=== PATIENT | female | born 1995 | race Caucasian/White ===

== ENCOUNTER → 2018-05-28 | Outpatient (REF) ==
[~2018-05-28] MED LIST: BIRTH CONTROL; LACT1CAP6 PO; LOPE-111 PO; MULT-1335 PO; ONDA4TAB PO
[2018-05-28 15:41] LABS: LDL CHOLESTEROL 60 mg/dl
== END ==
DX: Z02.9 Encounter for administrative examinations, unspecified (principal)

== ENCOUNTER → 2018-06-10 | Outpatient (CLI) | payer OTHER, BC ==
[~2018-06-10] MED LIST changes: +DOCO100C2 PO; +PREN-127 PO; +[UNRECOGNIZED DRUG - CODE] PO
[2018-06-10 12:10] LABS: PLATELET COUNT, AUTOMATED 293 K/uL (150-450)
== END ==
LOC: LAB 07:53
PROVIDERS: ATTEND Advanced Practice Midwife
DX: Z34.91 Encounter for supervision of normal pregnancy, unspecified, first trimester (principal)
CPT/HCPCS: 36415; 81001; 85025; 86592; 86703; 86762; 86850; 86900; 86901; 87088; 87340

== ENCOUNTER → 2018-06-20 | Outpatient (CLI) | payer OTHER, BC | LOC: LAB 07:50 | PROVIDERS: ATTEND Student in an Organized Health Care Education/Training Program | DX: Z11.3 Encounter for screening for infections with a predominantly sexual mode of transmission (principal); Z11.8 Encounter for screening for other infectious and parasitic diseases | CPT/HCPCS: 87491; 87591 ==

== ENCOUNTER → 2018-09-02 | Outpatient (CLI) | payer OTHER, BC ==
--- NOTE | 2018-09-02 13:45 | RADIOLOGY IMAGING REPORT ---
FACILITY: [facility] [place] PATIENT NAME: Ilsa Whelan : 1995 MR: [id number] V: [id number] EXAM DATE: ORDERING PHYSICIAN: MARJ SALES TECHNOLOGIST: [facility] Patient: Ilsa Whelan : 1995 Visit/Account:[id number] Date of Sevice: 09/02/2018 [facility] OB ANATOMICAL SURVEY HISTORY: Anatomy scan [facility] OB ANATOMICAL SURVEY HISTORY: Anatomy scan COMPARISON: 06/20/2018 FINDINGS: Intrauterine gestations: 1 presentation: Breech heart rate: 147 bpm Amniotic fluid volume: MOSES 18.2 cm; Largest amniotic fluid pocket 5.6 cm Placenta: Posterior. No placenta previa or retroplacental hemorrhage. Placenta measured to within 2. 4 cm of the cervix Uterus: Gravid, otherwise normal Maternal adnexa: Negative Cervix: Closed Gestational Parameters: BPD: 4.3 cm; 19 weeks/ 0 days/49th percent HC: 16.2 cm; 19 weeks/ 0 days/40th percentile AC: 14.3 cm; 19 weeks/ 5 days/68 th percentile FL: 2.9 cm; 19 weeks/ 1 days/45th percentile Average ultrasound age (AUA): 19 weeks/ 2 days Estimated weight (EFW): 287 grams +/- 42 grams Anatomic Survey: Intracranial structures, 4-chamber heart, stomach, kidneys, urinary bladder, spine, 3-vessel cord and cord insertion are unremarkable. Two upper and two lower extremities visualized. IMPRESSION: 1. IUP of 19 weeks 2 days. SO of 01/25/2019. Report Dictated By: Drake Martin MD at 09/02/2018 10:46 AM Report E-Signed By: Drake Martin MD at 09/02/2018 11:29 AM WSN:LIOR
== END ==
LOC: RAD 08:47
PROVIDERS: ATTEND Advanced Practice Midwife
DX: Z02.9 Encounter for administrative examinations, unspecified (principal)

== ENCOUNTER → 2018-10-29 | Outpatient (CLI) | payer OTHER, BC ==
[~2018-10-29] MED LIST changes: +DIPH0.5S2 IM
[2018-10-29 09:52] LABS: PLATELET COUNT, AUTOMATED 209 K/uL (150-450)
== END ==
LOC: LAB 08:22
PROVIDERS: ATTEND Advanced Practice Midwife
DX: Z34.92 Encounter for supervision of normal pregnancy, unspecified, second trimester (principal)
CPT/HCPCS: 36415; 82950; 85025